=== PATIENT | male | born 1930 | race Caucasian/White ===

== ENCOUNTER 2017-07-28 11:09 | Day surgery (SDC) | payer MEDICARE, BC ==
[~2017-07-28] VITALS: Ht 167.6 cm; Wt 78.3 kg
[~2017-07-28 11:09] MED LIST: ASPIRIN 81M81 MG/TA2 PO; HYTRIN 5MG C5 MG/CAP PO; LUTEIN20 M1 PO; RELAFEN750 MG PO; SYNTHROID0.05 MG/TA PO; ZESTRIL 10MG10 MG PO
[2017-07-28] MEDS ORDERED: TOPROL XL 25MG25 MG PO (12:59)
[2017-07-28] MEDS ORDERED: LIPITOR 80MG80 MG PO (13:00)
[2017-07-28] MEDS ORDERED: LASIX 20MG TABL20 MG PO (13:01)
[2017-07-28] MEDS ORDERED: PLAVIX 75MG TAB75 MG PO (13:01)
[2017-07-28] MEDS ORDERED: PULMICORT0.5 MG/2 M IH (13:02)
[2017-07-28] MEDS ORDERED: COUMADIN 6MG6 MG/TAB PO (13:04)
[2017-07-28] MEDS ORDERED: JANTOVEN3 M1 PO (13:05)
[2017-07-28 13:07] VITALS: BP 114/74; PULSE 85; TEMP 98
[2017-07-28 14:35] VITALS: BP 128/78; PULSE 76; TEMP 97.6
[2017-07-28 14:50] VITALS: BP 102/71; PULSE 70
[2017-07-28 15:05] VITALS: BP 125/69; PULSE 69
[2017-07-28] MEDS ORDERED: CEPHALEXIN500 M1 PO (15:09)
[2017-07-28] MEDS ORDERED: NORCO 325 MG-51 TAB PO (15:09)
[2017-07-28] MEDS ORDERED: SENOKOT S 50 MG1 TAB PO (15:11)
[2017-07-28 15:20] VITALS: BP 121/66; PULSE 71
[2017-07-28 15:50] VITALS: BP 116/68; PULSE 70
== END 2017-07-28 16:10 | disposition home or self-care (01) ==
LOC: SDCO 11:09
DX: N35.9 Urethral stricture, unspecified (principal); N40.0 Benign prostatic hyperplasia without lower urinary tract symptoms; I25.10 Atherosclerotic heart disease of native coronary artery without angina pectoris; J44.9 Chronic obstructive pulmonary disease, unspecified; I11.0 Hypertensive heart disease with heart failure; I50.9 Heart failure, unspecified; E03.9 Hypothyroidism, unspecified; M19.90 Unspecified osteoarthritis, unspecified site; G47.33 Obstructive sleep apnea (adult) (pediatric); Z98.52 Vasectomy status; Z95.0 Presence of cardiac pacemaker; Z90.79 Acquired absence of other genital organ(s); Z96.642 Presence of left artificial hip joint; Z79.01 Long term (current) use of anticoagulants; Z87.891 Personal history of nicotine dependence; Z82.49 Family history of ischemic heart disease and other diseases of the circulatory system; Z83.3 Family history of diabetes mellitus
CPT/HCPCS: J1100; J2704; J3010; J7120